=== PATIENT | female | born 1995 | race Caucasian/White ===

== ENCOUNTER 2018-05-16 19:24 | Emergency (ER) | payer OTHER ==
[~2018-05-16] VITALS: Ht 160 cm; Wt 54.5 kg
[~2018-05-16 19:24] MED LIST: DIAZ-351 PO; ONDA4TAB12 PO
[2018-05-16 19:37] VITALS: BP 120/85
[2018-05-16 20:02] LABS: BASOPHILS % (AUTO) 0.6 % (0-1); EOSINOPHILS # (AUTO) 0.1 X10'3 (0-0.9); EOSINOPHILS % (AUTO) 1.3 % (0-6); HEMATOCRIT 41.9 % (35.0-45.0); HEMOGLOBIN 14.2 g/dl (12.0-16.0); LYMPHOCYTES # (AUTO) 0.5 X10'3 (1.1-4.8); LYMPHOCYTES % (AUTO) 8.2 % (21-51); MEAN CORPUSCULAR HEMOGLOBIN 32.7 PG (27.0-31.0); MEAN CORPUSCULAR HGB CONC 33.8 % (33.0-36.5); MEAN CORPUSCULAR VOLUME 96.6 FL (78-98); MEAN PLATELET VOLUME 7.9 FL (7.4-10.4); MONOCYTES # (AUTO) 0.8 X10'3 (0-0.9); MONOCYTES % (AUTO) 11.8 % (2-12); NEUTROPHILS # (AUTO) 5.1 X10'3 (1.8-7.7); NEUTROPHILS % (AUTO) 78.1 % (42-75); PLATELET COUNT 233 X10'3 (140-440); RED BLOOD COUNT 4.33 X10'6 (4.20-5.60); RED CELL DISTRIBUTION WIDTH 12.9 % (11.5-14.5); WHITE BLOOD COUNT 6.5 X10'3 (4.5-11.0)
[2018-05-16 20:17] LABS: ALANINE AMINOTRANSFERASE 43 U/L (12-78); ALBUMIN 4.1 G/DL (3.4-5.0); ALBUMIN/GLOBULIN RATIO 1.2 (1.1-1.5); ALKALINE PHOSPHATASE 94 IU/L (46-116); ANION GAP 9 (8-16); ASPARTATE AMINO TRANSFERASE 24 U/L (10-37); BILIRUBIN,TOTAL 0.4 MG/DL (0.1-1.0); BLOOD UREA NITROGEN 25 MG/DL (7-18); BUN/CREATININE RATIO 24.8 (6.6-38.0); CALCIUM 8.9 MG/DL (8.5-10.1); CHLORIDE 104 MMOL/L (99-107); CREATININE 1.01 MG/DL (0.40-0.90); GLUCOSE 86 MG/DL (70-104); POTASSIUM 3.9 MMOL/L (3.5-5.1); SODIUM 140 MMOL/L (135-145); TOTAL CARBON DIOXIDE 27.3 MMOL/L (24-32); TOTAL PROTEIN 7.4 G/DL (6.4-8.2); eGFR 68 ML/MIN
[2018-05-16 20:26] LABS: PHOSPHORUS 3.7 MG/DL (2.3-4.5)
== END 2018-05-16 20:48 | disposition home or self-care (01) ==
LOC: EEVIPCON 19:25 → ER 19:25
DX: R00.2 Palpitations (principal); Z91.040 Latex allergy status
CPT/HCPCS: 36415; 80053; 83735; 84100; 84443; 84484; 85025; 93005; 99284

== ENCOUNTER 2018-07-03 16:18 | Outpatient (CLI) | payer OTHER | END 2018-07-03 23:59 | disposition home or self-care (01) | LOC: RAD 16:18 | PROVIDERS: ATTEND Physical Medicine & Rehabilitation | DX: M25.561 Pain in right knee (principal); Z91.040 Latex allergy status | CPT/HCPCS: 73564 ==

== ENCOUNTER 2018-07-04 11:19 | Outpatient (CLI) | payer OTHER | END 2018-07-04 23:59 | disposition home or self-care (01) | LOC: RAD 11:19 | PROVIDERS: ATTEND Physical Medicine & Rehabilitation | DX: M71.21 Synovial cyst of popliteal space [Baker], right knee (principal); Z91.040 Latex allergy status | CPT/HCPCS: 73721 ==